=== PATIENT | male | born 1940 ===

== ENCOUNTER → 2021-04-21 12:57 | Outpatient (BNVA) | payer MEDICARE, BC, SELFPAY | PROVIDERS: PCP Family Medicine; Referring Provider Family Medicine; Visit Provider Nurse Practitioner | DX: G25.9 Extrapyramidal and movement disorder, unspecified (principal); R26.89 Other abnormalities of gait and mobility; G47.8 Other sleep disorders | CPT/HCPCS: 99204 ==